=== PATIENT | female | born 1965 | race Caucasian/White ===

== ENCOUNTER 2020-04-26 23:14 | Emergency (ER) | payer BC ==
[2020-04-27] MEDS ORDERED: NORMAL SALINE 1000 ML 1,000 ML IV ONE (02:36)
[2020-04-27 03:57] LABS: ABSOLUTE BASOPHILS # (AUTO) 0.1 10^3/uL (0.0-0.2); ABSOLUTE EOSINOPHILS # (AUTO) 0.1 10^3/uL (0.0-0.6); ABSOLUTE LYMPHOCYTES (AUTO) 2.3 10^3/uL (0.5-4.7); ABSOLUTE MONOCYTES (AUTO) 1.2 10^3/uL (0.1-1.4); ABSOLUTE NEUT (AUTO) 7.2 10^3/uL (1.7-8.2); BASOPHILS % (AUTO) 0.9 % (0-2); EOSINOPHILS % (AUTO) 0.6 % (0-6); HEMATOCRIT 44.2 % (36.0-47.0); HEMOGLOBIN 15.2 g/dL (12.0-15.5); LYMPHOCYTES % (AUTO) 20.7 % (13-45); MEAN CORPUSCULAR HEMOGLOBIN 31.8 pg (27.0-33.4); MEAN CORPUSCULAR HGB CONC 34.5 g/dL (32.0-36.0); MEAN CORPUSCULAR VOLUME 92 fl (80-97); MONOCYTES % (AUTO) 11.5 % (3-13); PLATELET COUNT 293 10^3/uL (150-450); RED BLOOD COUNT 4.79 10^6/uL (3.72-5.28); RED CELL DISTRIBUTION WIDTH 13.6 % (11.5-14.0); SEGMENTED NEUTROPHILS % (AUTO) 66.3 % (42-78); TOTAL CELLS COUNTED % (AUTO) 100 %; WHITE BLOOD COUNT 10.9 10^3/uL (4.0-10.5)
[2020-04-27 04:03] LABS: ALBUMIN 4.2 g/dL (3.5-5.0); ALKALINE PHOSPHATASE 81 U/L (38-126); ANION GAP 7 (5-19); ASPARTATE AMINO TRANSFERASE 52 U/L (14-36); BILIRUBIN,TOTAL 0.5 mg/dL (0.2-1.3); BLOOD UREA NITROGEN 17 mg/dL (7-20); CARBON DIOXIDE 28 mmol/L (22-30); CHLORIDE 103 mmol/L (98-107); GLUCOSE 106 mg/dL (75-110); POTASSIUM 4.3 mmol/L (3.6-5.0); TOTAL PROTEIN 7.5 g/dL (6.3-8.2)
--- NOTE | 2020-04-27 05:45 | ER Document Report ---
ED General - General Chief Complaint: Skin Problem Stated Complaint: SWELLING IN LEGS Time Seen by Provider: 04/27/20 02:24 Notes: 54-year-old female presenting with right lower extremity redness, swelling and tenderness. She noticed a small part become red a few days ago and then it began to spread to a larger aspect of his of her right lower extremity. She states her calf is tender to palpation. She has pain with flexion of her ankle. She denies any fever, chills, shortness of breath or additional symptoms. She denies having diabetes. - Related Data Allergies/Adverse Reactions: No Known Allergies Allergy (Unverified 04/27/20 00:20) Past Medical History - Social History Smoking Status: Never Smoker Chew tobacco use (# tins/day): No Frequency of alcohol use: None Drug Abuse: None Family History: Reviewed & Not Pertinent Patient has homicidal ideation: No Review of Systems - Review of Systems Constitutional: No symptoms reported EENT: No symptoms reported Cardiovascular: No symptoms reported Respiratory: No symptoms reported Gastrointestinal: No symptoms reported Genitourinary: No symptoms reported Female Genitourinary: No symptoms reported Musculoskeletal: No symptoms reported Skin: See HPI Hematologic/Lymphatic: No symptoms reported Neurological/Psychological: No symptoms reported Physical Exam - Vital signs Vitals: Temp Pulse Resp BP Pulse Ox 98.5 F 106 H 20 168/89 H 98 04/26/20 23:27 04/26/20 23:27 04/26/20 23:27 04/26/20 23:27 04/26/20 23:27 Interpretation: Normal - Notes Notes: Adult General: GENERAL: Alert, interacts well. No acute distress HEAD: Normocephalic, atraumatic EYES: Pupils equal, round and reactive to light. Extraocular movements intact. ENT: Airway patent. Nares patent. NECK: Full range of motion. Supple. Trachea midline. No lymphadenopathy. LUNGS: Clear to auscultation bilaterally, no wheezes, rales, or rhonchi. No respiratory distress. Nontender chest wall. HEART: Regular rate and rhythm. No murmurs, rubs or gallops. ABDOMEN: Soft, nontender. Nondistended. Bowel sounds present in all 4 quadrants. No rebound, guarding or masses. GENITOURINARY: Deferred EXTREMITIES: Moves all 4 extremities spontaneously. lymphedema in bilateral lower extremities. Erythema, tenderness and warmth along right anterior stover and ankle. No palpable masses noted. Right calf is ttp. Normal radial and dorsal pedis pulses bilaterally. No cyanosis. BACK: No cervical, thoracic, lumbar midline tenderness. normal distal neurovascular exam. Moves all extremities with full range of motion. NEUROLOGICAL: Alert and oriented x3. Normal speech. Strength 5/ 5 in all extremities. PSYCH: Normal affect, normal mood. SKIN: See above Course - Re-evaluation Re-evalutation: 04/28/20 08:36 Patient with a physical exam consistent with cellulitis. Labs show a mild elevation of her white count 10.9. Rest of her labs are unremarkable. As her right leg is slightly swollen with tenderness along the calf I recommend having evaluation for DVT. Doppler is not available at this time so I wrote an order for the patient to have the ultrasound performed tomorrow morning. Patient to take medication as prescribed. Discussed that she can follow-up with emergency department for worsening symptoms or development of new symptoms. Also recommend she follows up with her primary care provider. Patient knowledges and verbalizes understanding of instructions and plan. All questions answered - Vital Signs Vital signs: Temp Pulse Resp BP Pulse Ox 98.1 F 87 18 144/83 H 100 04/27/20 05:55 04/27/20 05:55 04/27/20 05:55 04/27/20 05:55 04/27/20 05:55 - Laboratory Result Diagrams: 04/27/20 02:02 04/27/20 02:02 Laboratory results interpreted by me: 04/27/20 04/27/20 02:02 02:02 WBC 10.9 H AST 52 H ALT 36 H Discharge - Discharge Clinical Impression: Cellulitis and abscess of right lower extremity Condition: Stable Disposition: HOME, SELF-CARE Instructions: Cellulitis ([facility]), Clindamycin ([facility]) Additional Instructions: Your clinical presentation is consistent with cellulitis. Your labs show a slight elevation in some of your liver functions. Your blood pressure has also been slightly elevated at today's visit. I recommend you follow-up with this with your primary care provider for the elevation in your liver enzymes, elevation in your blood pressure as well as to ensure resolution of the cellulitis. Please continue to monitor your cellulitis. If it continues to spread despite antibiotic use or you develop additional symptoms to include fever chills please return to the emergency department. Prescriptions: Clindamycin HCl 300 mg PO Q6H 10 Days #40 capsule Forms: Follow-Up Radiology Testing
[2020-04-27 05:56] VITALS: BP 144/83
== END 2020-04-27 05:59 | disposition home or self-care (01) ==
LOC: ER 23:14
DX: L03.115 Cellulitis of right lower limb (principal); L02.415 Cutaneous abscess of right lower limb; M79.89 Other specified soft tissue disorders; M79.604 Pain in right leg
CPT/HCPCS: 99283; 96360; 36415; 87040; 85025; 80053; J7030